=== PATIENT | female | born 1995 ===

== ENCOUNTER 2017-02-11 20:16 | Outpatient (CLI) | payer OTHER ==
--- NOTE | 2017-02-12 13:43 | Ultrasound Report ---
PELVIC ULTRASOUND: 02/11/2017 CLINICAL INDICATION: Dysfunctional uterine bleeding. TECHNIQUE: Transabdominal pelvic ultrasound performed for global evaluation. Transvaginal pelvic ultr asound performed for detailed evaluation. Real-time scanning performed and static images obtained. FINDINGS: The uterus is retroverted, measuring 6.0 x 3.5 x 2.9 cm. The endometrial echo complex james ures 6 mm. The ovaries are unremarkable, with the right measuring 4.2 x 3.6 x 2.4 cm and the left rebecca suring 3.9 x 3.4 x 2.2 cm. No free fluid is present. IMPRESSION: NORMAL PELVIC ULTRASOUND. JOB #: [id number] EXT JOB #:[id number]
== END 2017-02-11 20:17 | disposition home or self-care (01) ==
LOC: DI 20:16
PROVIDERS: ATTEND Family Medicine
DX: N93.8 Other specified abnormal uterine and vaginal bleeding (principal)
CPT/HCPCS: 76830; 76856